=== PATIENT | female | born 1985 | race African-American/Black ===

== ENCOUNTER 2018-01-05 00:24 | Emergency (ER) | payer MEDICARE, MEDICAID ==
[~2018-01-05] VITALS: Ht 170.2 cm; Wt 73.0 kg
[2018-01-05 00:25] VITALS: BP 116/81
== END 2018-01-05 01:20 | disposition home or self-care (01) ==
LOC: ER 00:24
DX: F31.9 Bipolar disorder, unspecified (principal)
CPT/HCPCS: 99283

== ENCOUNTER 2024-04-16 02:29 | Emergency (ER) | payer MEDICARE, MEDICAID ==
[~2024-04-16] VITALS: Ht 167.6 cm; Wt 68.0 kg
[2024-04-16 02:35] VITALS: BP 136/92; PULSE 104; RESP 18; TEMP 98.7; O2SAT 99
[2024-04-17] MEDS ORDERED: ARIP20TA2 MT (09:05)
== END 2024-04-16 04:10 | disposition home or self-care (01) ==
LOC: ER 02:29
DX: T19.2XXA Foreign body in vulva and vagina, initial encounter (principal); F31.9 Bipolar disorder, unspecified; X58.XXXA Exposure to other specified factors, initial encounter; Y93.89 Activity, other specified; Y92.89 Other specified places as the place of occurrence of the external cause; Y99.8 Other external cause status
CPT/HCPCS: 99283

== ENCOUNTER 2024-04-17 08:53 | Emergency (ER) | payer MEDICARE, MEDICAID ==
[~2024-04-17] VITALS: Ht 172.7 cm; Wt 73.0 kg
[2024-04-17 08:56] VITALS: BP 129/79; PULSE 90; RESP 16; TEMP 98.4; O2SAT 99
[2024-04-17] MEDS ORDERED: ARIP20TA2 MT (09:05)
== END 2024-04-17 09:24 | disposition home or self-care (01) ==
LOC: ER 08:53
DX: F20.9 Schizophrenia, unspecified (principal); Z86.59 Personal history of other mental and behavioral disorders; Z98.890 Other specified postprocedural states
CPT/HCPCS: 99283